=== PATIENT | female | born 1990 | race African-American/Black ===

== ENCOUNTER → 2024-08-02 | Outpatient (CLI) | payer MEDICAID, SELFPAY ==
--- NOTE | 2024-08-02 12:30 | XR_ITS ---
Examination: Abdomen sonogram, Limited Date and time of exam: August 02, 2024 1242 hrs. Indications: Right upper abdominal pain beginning 4 days ago, 23 week by history Technique: Real-time tyson scale transabdominal sonographic images of the upper abdomen obtained. Findings: Normal gallbladder Normal common bile duct 0.3 cm Pancreatic head 1.6 cm Liver 13.8 cm smooth contour no focal liver lesions Normal hepatopedal portal venous flow Patent IVC Impression: Normal gallbladder Normal common bile duct
== END | disposition home or self-care (01) ==
PROVIDERS: Referring Provider Specialist; Visit Provider Specialist
DX: R10.13 Epigastric pain (principal)
CPT/HCPCS: 76705

== ENCOUNTER → 2024-08-31 | Outpatient (CLI) | payer MEDICAID, SELFPAY ==
--- NOTE | 2024-08-31 | XR_ITS ---
Examination: Breast ultrasound, unilateral, right complete Date and time of exam: August 31, 2024 1211 hours INDICATIONS: Right breast pain right axillary palpable lump beginning 11 months ago Technique: Real-time tyson scale ultrasonographic imaging performed right breast including all 4 quadrants as well as nipple retroareolar and axillary region. Findings: No cystic or solid breast mass Hyperechoic right axillary mass 3.6 x 1.5 x 4.0 cm most consistent with lipoma IMPRESSION: BI-RADS Category 3: Probably benign findings One additional 6 month right breast axillary sonography is needed to document stability of probably benign lipomatous mass in the right axilla
== END | disposition home or self-care (01) ==
LOC: CDIM 11:43
PROVIDERS: Referring Provider Physician Assistant Medical; Visit Provider Physician Assistant Medical
DX: R22.31 Localized swelling, mass and lump, right upper limb (principal); N64.4 Mastodynia
CPT/HCPCS: 76641

== ENCOUNTER 2024-11-23 17:40 | Inpatient (IN) | payer MEDICAID, SELFPAY ==
[2024-11-23] VITALS (21 sets, daily range): BP systolic 122–137; BP diastolic 59–77; PULSE 85–107; RESP 20; TEMP 36.6; O2SAT 89–100
--- NOTE | 2024-11-23 18:12 | PD.LDHP ---
Documentation for date of: 11/23/24 OB Labor/Induct. HPI History of Present Illness Comments: H and P dictated on STAT line #9 in [employer] : [id number] Meds Home Medications and Allergies Allergies Allergy/AdvReac Type Severity Reaction Status Date / Time MUSHROOM Allergy Severe Swelling Uncoded 11/23/24 17:58 of Lip/Tongue/Throat OB Exam Physical Exam Vital signs: Pulse BP 92 126/73 11/23/24 18:11 11/23/24 18:11
[2024-11-23 18:36] LABS: Basophils % (Auto) 0 % (0-2.5); Eosinophils # (Auto) 0.1 Thou/mm3 (0.0-0.5); Eosinophils % (Auto) 1 % (0-10); Hematocrit 37.7 % (36.0-46.0); Immature Granulocytes % (Auto) 1 % (0-0); Immature Granulocytes Auto 0.09 Thou/mm3 (0.00-0.00); Lymphocytes # (Auto) 3.3 Thou/mm3 (1.0-4.8); Lymphocytes % (Auto) 16 % (10-50); Mean Corpuscular HGB Conc 34.5 g/dl (31.0-37.0); Mean Corpuscular Hemoglobin 29.1 pg (25.0-35.0); Mean Corpuscular Volume 85 fL (80-100); Monocytes # (Auto) 1.6 Thou/mm3 (0.0-0.8); Monocytes % (Auto) 8 % (0-12); Neutrophils # (Auto) 14.8 Thou/mm3 (1.8-7.7); Neutrophils % (Auto) 75 % (37-80); Nucleated Red Blood Cell % 0 /100 WBC (0); Platelet Count 353 Thou/mm3 (140-440); RDW Standard Deviation 39.9 fL (36.4-46.3); Red Blood Count 4.46 Miln/mm3 (4.00-5.20); White Blood Count 19.9 Thou/mm3 (3.6-11.0)
[2024-11-23 19:27] LABS: Syphilis Nonreactive (Nonreactive)
--- NOTE | 2024-11-23 19:27 | ESHP_ITS ---
RE: RADHA MOLINA : 1990 DATE OF ADMISSION: 11/23/2024 HISTORY OF PRESENT ILLNESS: This is a 34-year-old 3, para 0-0-2-0 with intrauterine at 39 weeks' gestation who presents with labor and delivery complaining of contractions and is noted to be 6 cm in active labor. The patient reports leaking fluid just prior to her exam in labor and delivery. She denies any bleeding. She reports normal movement. ALLERGIES: MUSHROOMS AND CATS. MEDICATIONS: multivitamin 1 p.o. daily. SOCIAL HISTORY: She denies any alcohol, drug use or smoking. PAST MEDICAL HISTORY: Asthma, migraine headaches, right axillary lipoma, endometriosis stage I, seizure. PAST SURGICAL HISTORY: Diagnostic laparoscopy, fulguration of endometriosis. OBSTETRIC HISTORY: Two previous spontaneous ABs at 6 weeks' gestation without D and C. Recurrent loss workup was negative for APA Syndrome. FAMILY HISTORY: Mother has diabetes, asthma and hypertension. REVIEW OF SYSTEMS: She denies any headache, change in vision, right upper quadrant pain. She denies any chest pain, palpitations, shortness of breath or lower extremity pain. PHYSICAL EXAMINATION: VITAL SIGNS: Blood pressure 128/72, heart rate 88, respirations 18, temperature 98.6. HEENT: Oropharynx and sclerae are clear. LUNGS: Clear to auscultation bilaterally. HEART: Regular rate and rhythm. ABDOMEN: Gravid, term size, consistent with estimated weight 8 pounds. PELVIC: Per RN is 6, 100, +1 vertex ruptured. Clear fluid. EXTREMITIES: Nontender. SKIN: No gross rashes or lesions. NEUROLOGIC: No focal deficit. ASSESSMENT AND PLAN: Intrauterine at 39 weeks' gestation. Active labor. Anticipate spontaneous vaginal delivery. Informed consent was obtained. The patient is made aware of the risks, complications, alternatives and benefits of operative vaginal delivery and delivery and agrees with these modes of delivery if indicated. DT: 18:17:44 TT: 19:25:00 Ref: [id number] - TID: [id number] MTDD
[2024-11-23] MEDS: OXYTOCIN in NS 20 units 20 UNIT/1,000 ML BAG 125 UNIT IV (19:40)
[2024-11-23] MEDS: LIDOCAINE HCL 1% 20 ML VIAL INFL (19:42)
[2024-11-23] MEDS: BENZO/LANO/ALOE (Dermoplast) 60 GM CAN 1 SPRAY TOP (19:50)
--- NOTE | 2024-11-23 20:05 | PD.LDDS ---
DS: Providers Provider Date of admission: 11/23/24 17:40 Primary care physician: Physician No Primary/Family Admitting Provider: Alvarez Pena MD Attending Provider on Admission: Alvarez Pena MD Attending Provider on DC: Alvarez Pena MD Discharging Provider: Alvarez Pena MD DS: Diagnosis Discharge Diagnosis (1) Vacuum-assisted vaginal delivery: Status: Acute (2) Shoulder dystocia, delivered: Status: Acute Problem List Completed Was Problem List Reviewed/Reconciled?: Yes Summary/Hosp Course Peripartum Data Delivery Method: Operative Vaginal Delivery Laceration Description: see Delivery Summary Exam Vital Signs Temp Pulse Resp BP Pulse Ox 98 F 96 20 125/65 100 11/23/24 18:22 11/23/24 19:51 11/23/24 18:22 11/23/24 19:51 11/23/24 18:43 Discharge Plan Plan Patient Disposition: HOME (Self Care) Patient condition on transfer: Stable Prescriptions/Referrals Prescriptions/Med Rec: New ibuprofen 600 mg tablet 600 mg PO Q6H PRN (Reason: pain) Qty: 30 0RF Discontinued levetiracetam [Keppra] 500 mg tablet 500 mg PO BID Qty: 60 0RF hydrocodone-acetaminophen 7.5-325 mg tablet 1 tab PO Q6H MDD 4 PRN (Reason: pain) Qty: 16 0RF Referrals: No Primary/Family,Physician [Primary Care Provider] - Patient/Caregiver Discharge Instructions Discharge Activity: activity as tolerated Other Discharge Activity Instructions:: Follow up office 6 weeks. Continue multivitamin one daily while . Print Language: [place] Islander Stand Alone Forms: Riddhi Award Info., Patient Portal Info Letter, Work/Release Restrictions Discharge Order Discharge Orders: Discharge (Routine); Ordered 11/24/24 Ordered By: Alvarez Pena Planned Discharge Date 11/24/24
--- NOTE | 2024-11-23 20:06 | OBDSUM_ITS ---
Shoulder Dystocia General Time head delivered:: 19:36 Traction performed:: none at any time Maneuvers/Procedures Senthil: Order Maneuver Performed:: 1 Time begun:: 19:36 Time ended:: 19:38 Performed by:: Leilani Hahn RN suprapubic pressure: Order Maneuver Performed:: 2 Time begun:: 19:37 Time ended:: 19:38 Performed by:: Leilani Hahn RN Was fundal Pressure applied? Fundal pressure applied:: No Shoulder Under Symphisis at head delivery:: right Immediate Assessment Immediate assessment:: suspect rt. clavicle fx Surgical Team Notified Surgical team notified:: Yes Vacuum Assisted Delivery General Patient Counseled by physician:: Yes Informed consent to patient:: Yes Estimated weight:: 8 lb Cervical dilation:: fully dilated station:: +3 position:: OA Molding:: No Caput:: No Vacuum Application Vacuum type:: Mityvac Vacuum application:: flexing median Total vacuum time (min):: 2 Maximum pressure (cm Hg):: 50 Cup Placement Flexion point identified:: Yes Cup approp. for head position:: Yes Maternal tissue excluded:: Yes Vacuum Procedure Number of pulls (contractions):: 2 Number of pop-offs:: 0 Recommended range maintained:: Yes Vacuum reduced between pulls:: Yes Advancement made each pull:: Yes Vacuum successful:: Yes Immediate [place] Evaluation Immediate assessment:: other Description of injury:: Possible right calvicle fracture Hand-off care to:: nursery nurse Additional Comments Additional comments: bradycardia not responding to intrauterine resuscitation with station +3 and inadequate maternal expulsive effort was the indication for operative vaginal delivery. Data ([facility]) Data : 1 Para: 0 Term: 0 : 0 : 0 Delivery Data ([facility]) Labor Data ROM Date: 11/23/24 ROM Time: 17:00 Rupture Type: SROM Amniotic Fluid: Clear Delivery Data EDC: 11/29/24 EDC calculated by:: LMP/early US confirmation Labor Onset Stage 1 Date: 11/23/24 Labor Onset Stage 1 Time: 17:49 Labor Onset Stage 2 Date: 11/23/24 Labor Onset Stage 2 Time: 19:03 Delivery Date: 11/23/24 Delivery Time: 19:38 Gestational age (weeks): 39 Gestational age (days): 1 Placenta Delivery Date: 11/23/24 Placenta Delivery Time: 19:47 Delivered by: Alvarez Pena Delivery nurse: Leilani Hahn Other staff at delivery: Nursery Nurse Other staff at delivery: Nursery Nurse Other staff at delivery: Marti Elias Other staff at delivery: Maylin Diaz Delivery Method Delivery: Vaginal Delivery Type: Vacuum Presentation: Vertex Position: OA Anesthesia Type Primary Anesthesia: None Placenta Placenta Delivery: Spontaneous Placenta Cultures Obtained: No Placenta Sent for Examination: No Cord Sample: Cord Blood Obtained, Cord Gases Arterial and Cord Gases Venous Lacerations #1: Labial: Bilateral labial 2nd degree Perineal repair Sutures used for repair: 3.0 Chromic EBL Estimated blood loss (ml): 200 Umbilical Cord Nuchal Cord: None Additional Procedures Mityvac vacuum assisted vaginal delivery Complications Complications: Shoulder dystocia [place] Data ([place]) [place] Data Gender: Female Infant Weight Grams: 3550g 1 Minute Total: 6 5 Minute Total: 9
[2024-11-23] MEDS: IBUPROFEN TAB 400 MG TABLET 800 MG PO (22:08)
[2024-11-24 00:07] VITALS: BP 133/81; PULSE 95; RESP 18; TEMP 36.7; O2SAT 98
[2024-11-24 02:58] LABS: Basophils % (Auto) 0 % (0-2.5); Eosinophils % (Auto) 0 % (0-10); Hematocrit 35.6 % (36.0-46.0); Immature Granulocytes % (Auto) 0 % (0-0); Lymphocytes # (Auto) 1.3 Thou/mm3 (1.0-4.8); Lymphocytes % (Auto) 5 % (10-50); Mean Corpuscular HGB Conc 33.7 g/dl (31.0-37.0); Mean Corpuscular Hemoglobin 29.1 pg (25.0-35.0); Mean Corpuscular Volume 86 fL (80-100); Monocytes # (Auto) 1.4 Thou/mm3 (0.0-0.8); Monocytes % (Auto) 6 % (0-12); Neutrophils # (Auto) 21.5 Thou/mm3 (1.8-7.7); Neutrophils % (Auto) 88 % (37-80); Nucleated Red Blood Cell % 0 /100 WBC (0); Platelet Count 302 Thou/mm3 (140-440); RDW Standard Deviation 41.3 fL (36.4-46.3); Red Blood Count 4.13 Miln/mm3 (4.00-5.20); White Blood Count 24.3 Thou/mm3 (3.6-11.0)
[2024-11-24 03:51] VITALS: BP 124/74; PULSE 88; RESP 18; TEMP 36.7; O2SAT 98
--- NOTE | 2024-11-24 07:36 | ESPR_ITS ---
RE: RADHA MOLINA : 1990 DATE OF SERVICE: 11/24/2024 SUBJECTIVE: day #1. The patient denies any problem or complaint. She is voiding, ambulating and tolerating diet, passing flatus. She denies any excessive vaginal bleeding. She denies any dizziness or lightheadedness. She denies any chest pain, palpitations, shortness of breath, or lower extremity pain. She denies any depression or anxiety. OBJECTIVE: Vital Signs: Blood pressure 124/74. Heart rate 88. Respirations 18. Temperature is 98.0. Pulse oximetry is 98% on room air. Lungs: Clear to auscultation bilaterally. Heart: Regular rate and rhythm. Abdomen: Fundus is firm, nontender. Extremities: Nontender. LABORATORY DATA: Hemoglobin pre-delivery is 13.0. Post-delivery is 12.0. ASSESSMENT: day #1, status post vacuum-assisted vaginal delivery complicated by shoulder dystocia. PLAN: Advance care, pharmacy consultant. Discharge home when baby is cleared. Discharge instructions given. DT: 07:18:32 TT: 07:35:00 Ref: [id number] - TID: [id number] [facility]ITAL[facility]
[2024-11-24] MEDS: IBUPROFEN TAB 400 MG TABLET 800 MG PO ×2 (09:36→21:04)
[2024-11-24 09:54] VITALS: BP 128/89; PULSE 95; RESP 18; TEMP 36.6; O2SAT 98
[2024-11-24 11:36] VITALS: BMI 38.9
[2024-11-24 14:44] VITALS: BP 114/75; PULSE 92; RESP 16; TEMP 36.5; O2SAT 99
[2024-11-24 20:28] VITALS: BP 106/70; PULSE 81; RESP 16; TEMP 36.7; O2SAT 100
== END 2024-11-24 21:51 | disposition home or self-care (01) | DRG 560 ==
LOC: S4NX 11-24 07:35 → S4SX 11-24 07:35
PROVIDERS: Admitting Provider Specialist; Visit Provider Specialist
DX: O66.0 Obstructed labor due to shoulder dystocia (principal); Z37.0 Single live birth; Z3A.39 39 weeks gestation of pregnancy; O76 Abnormality in fetal heart rate and rhythm complicating labor and delivery; O70.1 Second degree perineal laceration during delivery
CPT/HCPCS: 36415; 59409; 85025; 86780; 86850; 86900; 86901; 94762; J2590; J2795; J3010; J3490; A9270

== ENCOUNTER 2025-08-04 13:00 | Outpatient (RCR) | payer MEDICAID, SELFPAY ==
--- NOTE | 2025-07-26 16:03 | PT.OIERPT ---
PT OP Initial Eval Patient Information Outpatient Physical Therapy Treatment Date: 07/26/25 Visit Reasons: left wrist pain Medical Diagnosis: Left Wrist Pain Treatment Dx #1: Left Thumb Pain Treatment Dx #2: Left Wrist Pain Start of Care: 07/26/25 Date of Onset: 2 months ago Smoking Status Smoking Status: Never smoker Initial Assessment Subjective: Pt is a 35 y/o female reports of left thumb and wrist pain ~ 2 months ago. Pt has difficulty with gripping, lifting, chores, self care, cooking, cleaning, and performing work duties. 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
--- NOTE | 2025-08-01 11:56 | PT.ODAYNRPT ---
PT Outpatient Daily Note OP Daily Note Outpatient Physical Therapy Treatment Date: 08/01/25 Visit Reasons: left wrist pain Subjective: Pt's wrist and hand feels okay. Pt still notice pain in the thumb region. Objective: Please see flow chart for list of ther ex performed Assessment: tolerate STM and reports of soreness post PT session. Plan: Continue with PT Length of Time (minutes) of Treatment: 30 Minutes Procedure Charges Therapeutic Exercise 30 minutes: Yes
--- NOTE | 2025-08-04 14:01 | PT.ODAYNRPT ---
PT Outpatient Daily Note OP Daily Note Outpatient Physical Therapy Treatment Date: 08/04/25 Visit Reasons: left wrist pain Subjective: Pt's thumb feels much better. Pt has been able to sleep longer with less pain since last appt. Objective: Please see flow chart for list of ther ex performed Assessment: cues to pace with all exercises to decrease fatigue. Pt reports of less pain post PT session Plan: Continue with PT Length of Time (minutes) of Treatment: 30 Minutes Procedure Charges Therapeutic Exercise 30 minutes: Yes
== END 2025-08-09 23:59 | disposition home or self-care (01) ==
LOC: CPTX 13:00
PROVIDERS: PCP Family Medicine; Referring Provider Family Medicine; Visit Provider Family Medicine
DX: M25.532 Pain in left wrist (principal); M79.645 Pain in left finger(s); M79.642 Pain in left hand; R53.1 Weakness
CPT/HCPCS: 97110; 97162